=== PATIENT | male | born 1985 | race Caucasian/White ===

== ENCOUNTER 2016-05-25 19:04 | Emergency (ER) | payer OTHER ==
--- NOTE | 2016-05-25 19:19 | EDM.PDOC ---
ED HPI GENERAL MEDICAL PROBLEM - General Stated Complaint: SPIDER BITE/RT NECK/SHOULDER Time Seen by Provider: 05/25/16 19:15 Source of Information: Reports: Patient (Per history of present illness) - History of Present Illness INITIAL COMMENTS - FREE TEXT/NARRATIVE: HISTORY AND PHYSICAL: History of present illness: [] 31-year-old male with no significant past medical history now came to the emergency department because of a suspected insect bite on his right shoulder area patient states 2 days ago he noticed a small papule lateral to the base of his right neck over his right shoulder. This became enlarged, swollen, red, painful. Is now improved and there is just a small area of 2 x 3 cm of erythema. Patient was concerned because 2 days ago he had several episodes of diarrhea which he thought might be associated with this insect bite. He states his tetanus is up to date. Diarrhea spontaneously resolved and he has no abdominal pain or other complaint. The presumed bite area is mildly sore but has improved dramatically in the swelling has resolved. No fevers chills sweats or shaking chills. Patient is currently asymptomatic except mild local soreness at the presumed bite site. Review of systems: As per history of present illness and below otherwise all systems reviewed and negative. Past medical history: As per history of present illness and as reviewed below otherwise noncontributory. Surgical history: As per history of present illness and as reviewed below otherwise noncontributory. Social history: No reported history of drug or alcohol abuse. Family history: As per history of present illness and as reviewed below otherwise noncontributory. Physical exam: HEENT: Atraumatic, normocephalic, well-appearing, normal mood and affect Lungs: Clear to auscultation, breath sounds equal bilaterally, chest nontender. Heart: S1S2, regular, negative for clicks, rubs, or JVD. Abdomen: nondistended Pelvis: Deferred Genitourinary: Deferred. Rectal: Deferred. Extremities: Atraumatic, normal appearing Neuro: Awake, alert, oriented. Motor unremarkable throughout. Exam nonfocal. Skin: 2 cm x 3 cm area of erythema with a small central papule base of right neck over right shoulder. Area is nontender no crepitus or fluctuance. No warmth no eschar or necrosis. No soft tissue swelling or mass whatsoever Diagnostics: [] Therapeutics: [] Impression: [] Plan: [] Definitive disposition and diagnosis as appropriate pending reevaluation and review of above. Left Upper Neck Pain Score (Numeric/FACES): 3 - Related Data Allergies Allergy/AdvReac Type Severity Reaction Status Date / Time azithromycin AdvReac Hives Verified 05/25/16 19:14 [From Zithromax Z-Kostas] melon Allergy Other Uncoded 02/24/14 19:06 Home Meds: Home Meds . [No Known Home Meds] 02/24/14 [History] Social & Family History - Tobacco Use Smoking Status *Q: Never Smoker - Alcohol Use Days Per Week of Alcohol Use: 3 Number of Drinks Per Day: 6 Total Drinks Per Week: 18 - Recreational Drug Use Recreational Drug Use: No ED ROS GENERAL - Review of Systems Review Of Systems: See Below (Per history of present illness) ED EXAM, GENERAL - Physical Exam Exam: See Below (Per history of present illness) Course - Vital Signs Last Recorded V/S: Last Vital Signs Temp 36.6 C 05/25/16 19:45 Pulse 89 05/25/16 19:45 Resp 17 05/25/16 19:45 BP 131/79 05/25/16 19:45 Pulse Ox 93 L 05/25/16 19:45 Departure - Departure Time of Disposition: 19:19 Disposition: Home, Self-Care 01 Condition: good Clinical Impression: Spider bite, Diarrhea Instructions: Spider Bite, [id number] Referrals: PCP,None [Primary Care Provider] - Forms: ED Department Discharge Additional Instructions: Your episode of diarrhea was likely associated with a mild viral syndrome. The skin lesion on your shoulder appears to be a spider bite which by her description started as a papule swelled significantly and now it has resolved and the redness is resolving as well. your tetanus is up-to-date as you described. Watch for evolving signs of infection worsening redness swelling tenderness warmth and especially a collection of pus inside or drainage. All appear Dr. in 2 days for recheck and return immediately for new severe or worsening symptoms.
[2016-05-25 19:46] VITALS: BP 131/79
== END 2016-05-25 19:39 | disposition home or self-care (01) ==
LOC: MW.ED 19:04
DX: T63.301A Toxic effect of unspecified spider venom, accidental (unintentional), initial encounter (principal); R19.7 Diarrhea, unspecified; Z88.1 Allergy status to other antibiotic agents
CPT/HCPCS: 99282

== ENCOUNTER 2017-05-16 15:42 | Emergency (ER) | payer OTHER ==
--- NOTE | 2017-05-16 15:58 | EDM.PDOC ---
ED HPI GENERAL MEDICAL PROBLEM - General Chief Complaint: Back Pain or Injury Stated Complaint: LOWER BACK PAIN Time Seen by Provider: 05/16/17 15:58 Source of Information: Reports: Patient History Limitations: Reports: No Limitations - History of Present Illness INITIAL COMMENTS - FREE TEXT/NARRATIVE: HISTORY AND PHYSICAL: []32-year-old male presenting with left-sided flank pain down buttock History of Present Illness: []Patient was doing lifting at the gym about 3 weeks ago strained his back feels that he's had a previous injury went back to it and now has increased pain over the left proximal Review of Systems: As per history of present illness and below otherwise all systems reviewed and negative. Past medical history: As per history of present illness and as reviewed below otherwise noncontributory. Surgical history: As per history of present illness and as reviewed below otherwise noncontributory. Social history: No reported history of drug or alcohol abuse. Family history: As per history of present illness and as reviewed below otherwise noncontributory. Physical exam: Alert and oriented gentleman answering questions appropriately speaking in full sentences have a little difficulty moving. HEENT: Atraumatic, normocehpalic, pupils reactive, negative for conjunctival pallor or scleral icterus, mucous membranes moist, throat clear, neck supple, nontender, trachea midline. Lungs: Clear to auscultation, breath sounds equal bilaterally, chest non tender. Heart: S1S2, regular, negative for clicks, rubs, or JVD. Abdomen: Soft, nondistended, nontender. Negative for masses or hepatossplenmegaly. Negative for costovertebral tenderness. Pelvis: Stable nontender. No tenderness to the vertebral area however there is tenderness down the left Botox at the sciatic area Genitourinary: Deferred. Rectal: Deferred Extremities: Atraumatic, negative for cords or calf pain. No difficulty with raising leg off of the exam table left and right no difficulty with extension and lowering his leg against force Neurovascular unremarkable. Neuro: Awake, alert, oriented. Cranial nerves II through XII unremarkable. Cerebellum unremarkable. Motor and sensory unremarkable throughout. Exam nonfocal. Diagnostics: [] Therapeutics: [] Impression: [Left sciatic pain] Plan: [Medrol dose pack Discharge to home Follow up with physical therapy/sports medicine] Definitive disposition and diagnosis as appropriate pending reevaluation and review of above. Onset: Today, Sudden Duration: Hour(s):, Getting Worse Location: Reports: Radiates to (Left buttocks) Left Hip Pain Score (Numeric/FACES): 8 - Related Data Allergies Allergy/AdvReac Type Severity Reaction Status Date / Time azithromycin AdvReac Hives Verified 05/16/17 15:54 [From Zithromax Z-Kostas] melon Allergy Other Uncoded 05/16/17 15:54 Home Meds: Home Meds methylPREDNISolone [Medrol] 4 mg PO ASDIRECTED #1 dosepk 05/16/17 [Rx] Past Medical History Neurological History: Reports: Concussion - Infectious Disease History Infectious Disease History: Reports: Chicken Pox - Past Surgical History GI Surgical History: Reports: Appendectomy Social & Family History - Family History Neurological: Reports: CVA Endocrine/Metabolic: Reports: Diabetes, Type I - Tobacco Use Smoking Status *Q: Never Smoker - Caffeine Use Caffeine Use: Reports: Coffee - Alcohol Use Days Per Week of Alcohol Use: 3 Number of Drinks Per Day: 6 Total Drinks Per Week: 18 - Recreational Drug Use Recreational Drug Use: No ED ROS GENERAL - Review of Systems Review Of Systems: ROS reveals no pertinent complaints other than HPI. ED EXAM,LOWER BACK PAIN/INJURY - Physical Exam Exam: See Below (See dictation) Course - Vital Signs Last Recorded V/S: Last Vital Signs Temp 36.2 C 05/16/17 15:51 Pulse 99 05/16/17 15:51 Resp 18 05/16/17 15:51 BP 134/87 05/16/17 15:51 Pulse Ox 93 L 05/16/17 15:51 Departure - Departure Time of Disposition: 16:05 Disposition: Home, Self-Care 01 Condition: Good Clinical Impression: Sciatica Qualifiers: Laterality: left Qualified Code(s): M54.32 - Sciatica, left side - Discharge Information Prescriptions: methylPREDNISolone [Medrol] 4 mg PO ASDIRECTED #1 dosepk Referrals: PCP,None [Primary Care Provider] - Forms: ED Department Discharge Additional Instructions: The following information is given to patients seen in the emergency department who are being discharged to home. This information is to outline your options for follow-up care. We provide all patients seen in our emergency department with a follow-up referral. The need for follow-up, as well as the timing and circumstances, are variable depending upon the specifics of your emergency department visit. If you don't have a primary care physician on staff, we will provide you with a referral. We always advise you to contact your personal physician following an emergency department visit to inform them of the circumstance of the visit and for follow-up with them and/or the need for any referrals to a consulting specialist. The emergency department will also refer you to a specialist when appropriate. This referral assures that you have the opportunity for followup care with a specialist. All of these measure are taken in an effort to provide you with optimal care, which includes your followup. Under all circumstances we always encourage you to contact your private physician who remains a resource for coordinating your care. When calling for followup care, please make the office aware that this follow-up is from your recent emergency room visit. If for any reason you are refused follow-up, please contact the [facility] emergency department at and asked to speak to the emergency department charge nurse. He has been given a Medrol dose pack take as directed on the box Left sciatic pain Follow-up with your primary care provider in 2 weeks for reevaluation
[2017-05-16 16:19] VITALS: BP 120/65
== END 2017-05-16 16:15 | disposition home or self-care (01) ==
LOC: MW.ED 15:42
DX: M54.32 Sciatica, left side (principal); Z88.1 Allergy status to other antibiotic agents; Z91.018 Allergy to other foods
CPT/HCPCS: 99282; 99283

== ENCOUNTER 2017-05-17 10:03 | Emergency (ER) | payer OTHER ==
[2017-05-17] MEDS ORDERED: Acetaminophen/HYDROcodone 325-5 MG Tab PO ONE (10:14)
[2017-05-17 10:21] VITALS: BP 132/66
[2017-05-17] MEDS ORDERED: HYDROmorphone 1 MG/ML Syringe IM ONE (10:54)
[2017-05-17] MEDS ORDERED: Cyclobenzaprine 10 MG Tab PO ONE (10:54)
--- NOTE | 2017-05-17 11:07 | EDM.PDOC ---
ED HPI GENERAL MEDICAL PROBLEM - General Chief Complaint: Back Pain or Injury Stated Complaint: BACK PAIN Time Seen by Provider: 05/17/17 11:03 Source of Information: Reports: Patient History Limitations: Reports: No Limitations - History of Present Illness INITIAL COMMENTS - FREE TEXT/NARRATIVE: HISTORY AND PHYSICAL: []32-year-old male presenting to the ER with complaints of left lower back pain History of Present Illness: []Patient was seen in the emergency room yesterday by me with same complaint. He improved throughout the evening yesterday and after sleeping through the night now is having pain He did google some stretching moves that seemed to help slightly Patient sent in the hot tub last night alternating with some ice on his back Review of Systems: As per history of present illness and below otherwise all systems reviewed and negative. Past medical history: As per history of present illness and as reviewed below otherwise noncontributory. Surgical history: As per history of present illness and as reviewed below otherwise noncontributory. Social history: No reported history of drug or alcohol abuse. Family history: As per history of present illness and as reviewed below otherwise noncontributory. Physical exam: Alert and oriented gentleman wearing the same clothing that he had on last night is looking somewhat distressed and having pain. Answers questions appropriately in full sentences without any shortness of breath. HEENT: Atraumatic, normocehpalic, pupils reactive, negative for conjunctival pallor or scleral icterus, mucous membranes moist, throat clear, neck supple, nontender, trachea midline. Lungs: Clear to auscultation, breath sounds equal bilaterally, chest non tender. Heart: S1S2, regular, negative for clicks, rubs, or JVD. Abdomen: Soft, nondistended, nontender. Negative for masses or hepatossplenmegaly. Negative for costovertebral tenderness. Pelvis: Stable nontender. Genitourinary: Deferred. Rectal: Deferred Extremities: Atraumatic, negative for cords or calf pain. Pain radiating to the left sciatic to the buttocks Neurovascular unremarkable. Neuro: Awake, alert, oriented. Cranial nerves II through XII unremarkable. Cerebellum unremarkable. Motor and sensory unremarkable throughout. Exam nonfocal. Diagnostics: [] Therapeutics: [[place] 5 Dilaudid 0.5 IM] Impression: [Left sciatic pain] Plan: [Discharged to home Continue to the Medrol Dosepak Use ibuprofen 4 tablets 3 times daily for discomfort] Definitive disposition and diagnosis as appropriate pending reevaluation and review of above. Left Lower Back Pain Score (Numeric/FACES): 9 - Related Data Allergies Allergy/AdvReac Type Severity Reaction Status Date / Time azithromycin AdvReac Hives Verified 05/17/17 10:14 [From Zithromax Z-Kostas] melon Allergy Other Uncoded 05/17/17 10:14 Home Meds: Home Meds methylPREDNISolone [Medrol] 4 mg PO ASDIRECTED #1 dosepk 05/16/17 [Rx] Past Medical History - Past Health History Medical/Surgical History: Denies Medical/Surgical History Musculoskeletal History: Reports: Back Pain, Chronic Neurological History: Reports: Concussion - Infectious Disease History Infectious Disease History: Reports: Chicken Pox - Past Surgical History GI Surgical History: Reports: Appendectomy Social & Family History - Family History Family Medical History: Noncontributory Neurological: Reports: CVA Endocrine/Metabolic: Reports: Diabetes, Type I - Tobacco Use Smoking Status *Q: Never Smoker Second Hand Smoke Exposure: No - Caffeine Use Caffeine Use: Reports: None - Alcohol Use Days Per Week of Alcohol Use: 3 Number of Drinks Per Day: 6 Total Drinks Per Week: 18 - Recreational Drug Use Recreational Drug Use: No ED ROS GENERAL - Review of Systems Review Of Systems: ROS reveals no pertinent complaints other than HPI. ED EXAM,LOWER BACK PAIN/INJURY - Physical Exam Exam: See Below (see dictation) Course - Vital Signs Last Recorded V/S: Last Vital Signs Temp 36.5 C 05/17/17 10:14 Pulse 83 05/17/17 10:14 Resp 16 05/17/17 10:14 BP 132/66 05/17/17 10:14 Pulse Ox 95 05/17/17 10:14 - Orders/Labs/Meds Orders: Active Orders 24 hr Category Date Time Status Cooling Warming Measures [RC] ASDIRECTED Care 05/17/17 10:14 Active Ice Pack [Ice Therapy] [OM.PC] Stat Oth 05/17/17 10:14 Ordered Meds: Medications Discontinued Medications Generic Name Dose Route Start Last Admin Trade Name Freq PRN Reason Stop Dose Admin Hydrocodone Bitart/Acetaminophen 1 tab 05/17/17 10:14 05/17/17 10:26 [place] 325-5 Mg PO 05/17/17 10:15 1 tab ONETIME ONE Administration Cyclobenzaprine HCl 10 mg 05/17/17 10:54 05/17/17 11:02 Flexeril PO 05/17/17 10:55 Not Given ONETIME ONE Hydromorphone HCl 0.5 mg 05/17/17 10:54 05/17/17 11:02 Dilaudid IM 05/17/17 10:55 0.5 mg ONETIME ONE Administration Departure - Departure Time of Disposition: 11:06 Disposition: Home, Self-Care 01 Condition: Good Clinical Impression: Sciatica Qualifiers: Laterality: left Qualified Code(s): M54.32 - Sciatica, left side - Discharge Information Instructions: Back Injury Prevention, [id number], Sciatica Rehab-SportsMed Referrals: PCP,None [Primary Care Provider] - Additional Instructions: The following information is given to patients seen in the emergency department who are being discharged to home. This information is to outline your options for follow-up care. We provide all patients seen in our emergency department with a follow-up referral. The need for follow-up, as well as the timing and circumstances, are variable depending upon the specifics of your emergency department visit. If you don't have a primary care physician on staff, we will provide you with a referral. We always advise you to contact your personal physician following an emergency department visit to inform them of the circumstance of the visit and for follow-up with them and/or the need for any referrals to a consulting specialist. The emergency department will also refer you to a specialist when appropriate. This referral assures that you have the opportunity for followup care with a specialist. All of these measure are taken in an effort to provide you with optimal care, which includes your followup. Under all circumstances we always encourage you to contact your private physician who remains a resource for coordinating your care. When calling for followup care, please make the office aware that this follow-up is from your recent emergency room visit. If for any reason you are refused follow-up, please contact the [facility] emergency department at and asked to speak to the emergency department charge nurse. Continue with the steroid to her given yesterday Ice packs to this area Follow-up with sports rehabilitation on Friday - My Orders Last 24 Hours: My Active Orders 05/17/17 10:14 Cooling Warming Measures [RC] ASDIRECTED Ice Pack [Ice Therapy] [OM.PC] Stat - Assessment/Plan Last 24 Hours: My Active Orders 05/17/17 10:14 Cooling Warming Measures [RC] ASDIRECTED Ice Pack [Ice Therapy] [OM.PC] Stat
== END 2017-05-17 11:25 | disposition home or self-care (01) ==
LOC: MW.ED 10:03
DX: M54.42 Lumbago with sciatica, left side (principal); Z88.1 Allergy status to other antibiotic agents; Z91.018 Allergy to other foods
CPT/HCPCS: 96372; 99283; A9270; J1170; 99282